=== PATIENT | male | born 1950 | race Caucasian/White ===

== ENCOUNTER 2018-12-31 00:45 | Observation (INO) | payer OTHER ==
[2018-12-31 01:17] VITALS: BMI 24.3
--- NOTE | 2018-12-31 01:36 | PDOC ---
History of Present Illness - General Chief Complaint: Pain, Acute Stated Complaint: LT SHOULDER PAIN Time Seen by Provider: 12/31/18 01:03 - History of Present Illness Initial Comments: 12/31/18 01:32 68 yr old man s/p PPM and CAD s/p stent placement in LAD, SLAP injury to the left shoulder presents with sudden left shoulder pain for the past hour that started while he was laying down reading a book. 7/10 in intensity, feels like a muscle ache, unable to localize with 1 finger, generally from the left latismus to the upper half of his bicep. It was continuous and intermittently radiating down to his forearm. denies alleviating or exacerbating factors. Took motrin without any relief. 2-3 days ago he had pain around his pacemaker that lasted about 2 hours and resolved without intervention. drove to [place] ([address]) last weekend which is not unusual for him. worked out on Sunday(usual reps and his usual standard workout with elliptical and strength straps) denies trauma, shortness of breath, LE edema, cough, fevers, joint swelling, weakness, heavy lifting, tremors, muscle spasm. denies strenous activities Sat/Sun, this morning he was mostly reading or on his computer PCP and information technology manager: Dr. Enio Wooten([facility]) had a PPM interrogation 1 month ago, was normal surghx: 11/26/2014 LAD stent, placed due to left arm pain during exercise 06/22/2008 Dupytryen's contracture, left pinkie 10/21/2007 [employer] Guidant pacemaker 2-leads, Physician: Dr. Juan Diego Metzger. pacemaker model 1291 serial [id number], lead 4136 serial #[id number], Lead 4137 serial#[id number]. 08/02/2001 SLAP of the left shoulder attributed to swimming 04/27/1994 right knee arthroscopy 12/13/1991 vasectomy 11/12/1963 appendectomy Pmhx: had a FAST cardiac CT few years ago that showed extensive calcifications, CAD. PPM was placed due to SVT episodes and severe bradycardia. 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 lives with . Past History - Travel Traveled outside of the country in the last 30 days: Yes If so, where?: [facility] Close contact w/someone who was outside of country & ill: No - Past Medical History Allergies/Adverse Reactions: Allergies Allergy/AdvReac Type Severity Reaction Status Date / Time No Known Allergies Allergy Verified 12/31/18 01:02 Home Medications: Ambulatory Orders Aspirin Coated [Ecotrin -] 81 mg PO DAILY 12/31/18 Atenolol [Tenormin -] 12.5 mg PO BID 12/31/18 Atorvastatin Ca [Lipitor] 40 mg PO HS 12/31/18 Clopidogrel Bisulfate [Plavix] 75 mg PO DAILY 12/31/18 Cardiac Disorders: Yes (STENT,PACEMAKER.) Hx Myocardial Infarction: No CVA: No COPD: No CHF: No DVT: No Diabetes: No HTN: No (f) - Surgical History Cardiac Surgery: Yes (STENT,PACEMAKER.) Orthopedic Surgery: Yes (left shoulder SLAP, right knee arthroscopy) - Suicide/Smoking/Psychosocial Hx Smoking History: Never smoked Substance Use Type: None Patient Lives Alone: No Lives with/in: spouse/SO Review of Systems - Review of Systems Constitutional: No: Diaphoresis, Fever, Malaise, Weakness, Unintentional Wgt. Loss Respiratory: No: Cough, Orthopnea, Shortness of Breath, SOB with Exertion, SOB at Rest, Productive cough Cardiac (ROS): No: Chest Pain, Edema, Irregular Heart Rate, Lightheadedness, Palpitations, Chest Tightness ABD/GI: No: Abdominal Distended, Blood Streaked Bowels, Difficulty Swallowing, Nausea, Poor Appetite, Vomiting, Abdominal cramping : No: Burning, Dysuria, Flank Pain, Hematuria Musculoskeletal: Yes: Joint Pain. No: Back Pain, Joint Swelling, Muscle Pain, Muscle Weakness, Joint Stiffness Integumentary: No: Bruising, Erythema, Pruritus, Rash Neurological: No: Headache, Numbness, Paresthesia, Tingling, Tremors, Weakness, Unsteady Gait, Dizziness Endocrine: No: Excessive Sweating, Intolerance to Cold, Intolerance to Heat Hematologic/Lymphatic: No: Anemia, Easy Bleeding, Easy Bruising *Physical Exam - Vital Signs Last Vital Signs Temp Pulse Resp BP Pulse Ox 97.5 F L 50 L 18 107/82 100 12/31/18 00:58 12/31/18 00:58 12/31/18 00:58 12/31/18 00:58 12/31/18 00:58 - Physical Exam General Appearance: Yes: Appropriately Dressed HEENT: positive: EOMI, MARYAM, Pharynx Normal, Hearing Grossly Normal. negative: Tonsillar Exudate, Tonsillar Erythema, Rhinorrhea, Sinus Tenderness Neck: positive: Trachea midline, Normal Thyroid, Supple. negative: Carotid bruit, Decreased range of motion, Lymphadenopathy (R), Lymphadenopathy (L), Tender lateral, Thyromegaly Respiratory/Chest: positive: Lungs Clear, Normal Breath Sounds. negative: Chest Tender, Crackles, Rales, Rhonchi, Wheezing Cardiovascular: positive: Regular Rhythm, S1, S2, Other (atrially paced rhythm) . negative: Murmur Gastrointestinal/Abdominal: positive: Normal Bowel Sounds, Flat. negative: Tender, Guarding, Rebound, Tenderness, Hernia Musculoskeletal: positive: Normal Inspection, Other. negative: CVA Tenderness, CVA Tenderness (L), Muscle Spasm Extremity: positive: Normal Capillary Refill, Other (FROM in both shoulders/ elbows/hips/knee and ankles, FROM in neck on active motion.). negative: Pedal Edema, Swelling, Calf Tenderness, Erythema Integumentary: positive: Dry, Warm, Other (PPM in the left upper chest close to the shoulder joint, nontender to palpation, overlying skin is intact without erythema/swelling. ). negative: Jaundice, Cold, Moist, Petechiae, Rash, Swelling, Bruising Neurologic: positive: bonding machine tender II-XII NML intact, Fully Oriented, Alert, Other (5/5 strength b/l shoulder extension, flexion, internal and external rotation. nontender vertebral palpation, nontender b/l shoulder joints without erythema or swelling. sensation across shoulder, arm, forearm, hands is equal b/l) Deep Tendon Reflexes: Bicep (L): 2+, Bicep (R): 2+ Moderate Sedation - Procedure Monitoring Vital Signs: Procedure Monitoring Vital Signs Temperature 97.5 F L 12/31/18 00:58 Pulse Rate 50 L 12/31/18 00:58 Respiratory Rate 18 12/31/18 00:58 Blood Pressure 107/82 12/31/18 00:58 O2 Sat by Pulse Oximetry (%) 100 12/31/18 00:58 Heart Score/ECG Review - History History: Slightly suspicious - Electrocardiogram EKG: Normal - Age Age: >/= 65 - Risk Factors Risk Factors Heart Score: Yes Hx Hypercholesterolemia, Yes Positive family hx of cardiac disease Based on the list above the patient has:: 1-2 risk factors - ECG Intrepretation Rhythm: Regular Rhythm Comment:: 12/31/18 02:33 PPM - [place]: Normal ED Treatment Course - LABORATORY CBC & Chemistry Diagram: 12/31/18 01:47 12/31/18 01:47 Medical Decision Making - Medical Decision Making 12/31/18 02:34 68 yr old man with cardiac hx s/p PPM and LAD stend and family hx of cardiac disease presents with left shoulder pain. will need to check serial troponins to evaluate for [place], check d-dimer to r/o PE given long drive recently 12/31/18 02:49 d-dimer neg, EKG is atrially paced with prolonged AV-conduction, Qtc 408, vent rate 50bpm. may need the pacemaker to be interrogated chest xray 12/31/18 04:02 microblog sent to hospitalist, signout provided to the accepting team for tele- obs. *DC/Admit/Observation/Transfer Diagnosis at time of Disposition: Ruled out for myocardial infarction - Discharge Dispostion Decision to Admit order: Yes - Referrals Referrals: Enio Wooten Jr., MD [Primary Care Provider] - - Patient Instructions - Post Discharge Activity
--- NOTE | 2018-12-31 01:37 | PDOC ---
Attending Attestation - Resident Resident Name: Ervin Jack - ED Attending Attestation I have performed the following: I have examined & evaluated the patient, The case was reviewed & discussed with the resident, I agree w/resident's findings & plan - HPI HPI: 12/31/18 01:54 68-year-old male with intermittent left-sided chest pain, patient states that he 's had some discomfort near his pacemaker site. He has a significant cardiac history including stent placement as well. - Physicial Exam PE: 12/31/18 01:55 GENERAL: Awake, in no acute distress HEAD: No signs of trauma EYES: ENT: Moist mucosa NECK: Normal ROM, LUNGS:. Normal work of breathing. HEART: Regular rate and rhythm, ABDOMEN: Soft, nondistended CHEST WALL: Left superior lateral pacemaker noted with its lateral and abutting the anterior shoulder joint BACK: No midline tenderness. EXTREMITIES:. No erythema, NEUROLOGICAL: Alert, SKIN: Warm, Dry - Medical Decision Making 12/31/18 01:56 68-year-old male with intermittent chest pain possibly due to pacemaker site Patient is also post recent travel Plan for troponin and d-dimer as well as routine labs with chest x-ray/CTA as appropriate and admission for serial enzymes and observation due to significant cardiac history
[2018-12-31 01:58] LABS: HEMATOCRIT 41.4 % (35.4-49); HEMOGLOBIN 14.6 GM/dL (11.7-16.9); LYMPH % 22.7 % (8-40); MCH 30.7 pg (25.7-33.7); MCHC 35.2 g/dl (32.0-35.9); MEAN CELL VOLUME 87.1 fl (80-96); MEAN PLT VOLUME 9.4 fl (7.5-11.1); MONO % 8.8 % (3.8-10.2); NEUT % 63.5 % (42.8-82.8); PLATELET COUNT 175 K/MM3 (134-434); RBC 4.76 M/mm3 (4.00-5.60); RDW 13.9 % (11.9-15.9); WHITE BLOOD COUNT 8.2 K/mm3 (4.0-10.0)
[2018-12-31 02:35] LABS: ALBUMIN 3.8 g/dl (3.4-5.0); ALK PHOS 67 U/L (45-117); ANION GAP 6 MMOL/L (8-16); BILIRUBIN,TOTAL 0.3 mg/dL (0.2-1); BLOOD UREA NITROGEN 26 mg/dL (7-18); CALCIUM 8.4 mg/dL (8.5-10.1); CHLORIDE 105 mmol/L (98-107); CO2 28 mmol/L (21-32); CREATININE 1.1 mg/dL (0.55-1.3); GLUCOSE,RANDOM 83 mg/dL (74-106); POTASSIUM 3.9 mmol/L (3.5-5.1); SGOT/AST 27 U/L (15-37); SGPT/ALT 35 U/L (13-61); SODIUM 139 mmol/L (136-145); TOT PROT 6.7 g/dl (6.4-8.2)
--- NOTE | 2018-12-31 03:18 | PN ---
Teaching Attending Note Name of Resident: Stefanie Norwood ATTENDING PHYSICIAN STATEMENT I saw and evaluated the patient. I reviewed the resident's note and discussed the case with the resident. I agree with the resident's findings and plan as documented. SUBJECTIVE: Patient is a 68 year old man with PMH of PPM placement (for SVT and severe bradycardia), CAD s/p stent placement in LAD and SLAP injury to the left shoulder who presents with sudden left shoulder pain for the past hour that started while he was laying down reading a book. Pain is 7/10 in intensity, feels like a muscle ache, unable to localize it with one finger and is generally from the left latissimus to the upper half of his bicep. It was continuous and intermittently radiating down to his forearm. No alleviating or exacerbating factors. Took motrin without any relief. Says that 2-3 days ago he had pain around his pacemaker that lasted about 2 hours and resolved without intervention. Drove to [place] ([address]) last weekend which is not unusual for him. Worked out on Sunday(usual reps and his usual standard workout). Denies trauma, shortness of breath, LE edema, cough, fevers, joint swelling, weakness, heavy lifting, tremors, muscle spasm. Had a PPM interrogation 1 month ago, was normal OBJECTIVE: Alert Vital Signs Period Temp Pulse Resp BP Sys/Cook Pulse Ox Last 24 Hr 97.5 F 50 18 107/82 100 HEENT: No Jaundice, eye redness or discharge, PERRLA, EOMI. Normocephalic, atraumatic. External ears are normal and hearing is grossly intact. No nasal discharge. Neck: Supple, nontender. No palpable adenopathy or thyromegaly. No JVD Chest: Good effort. Clear to auscultation and percussion. Heart: Bradycardia. Regular. No S3, rub or murmur Abdomen: Not distended, soft, nontender and no HSM. No rebound or guarding. Normoactive bowel sounds. Ext: Peripheral pulses intact. No leg edema. Skin: Warm and dry. No petechiae, rash or ecchymosis. Neuro: Alert. Oriented x3. CN 2-12 grossly intact. Sensation grossly intact in all four extremities and DTR are symmetric. Home Medications Medication Instructions Recorded Aspirin Coated [Ecotrin -] 81 mg PO DAILY 12/31/18 Atenolol [Tenormin -] 12.5 mg PO BID 12/31/18 Atorvastatin Ca [Lipitor] 40 mg PO HS 12/31/18 Clopidogrel Bisulfate [Plavix] 75 mg PO DAILY 12/31/18 Abnormal Lab Results 12/31/18 01:47 Anion Gap 6 L BUN 26 H Calcium 8.4 L ASSESSMENT AND PLAN: 1. Chest pain - His presentation may be atypical for ACS, but he has risk factors. No acute pathology on CXR and EKG shows Atrial-paced rhythm, bradycardia but no significant ST-T wave changes. Patient is now painfree. Will admit to telemetry to rule out ACS, get ECHO, cardiolgy consult and continue lipitor. 2. DVT prophylaxis - Lovenox 40 mg SQ q 24 hours. 3. Advance directives - Full code
--- NOTE | 2018-12-31 04:19 | HP ---
CHIEF COMPLAINT: L shoulder pain PCP: Dr. Wooten ([facility]) HISTORY OF PRESENT ILLNESS: 68M w/ pmhx of CAD (s/p stent 2014), sick sinus syndrome (s/p PPM placement 2006 ) presented to the ED with complaints of L shoulder pain that started at about 1030pm last night. Pt reported the pain started on his L shoulder blade and radiated down his tricep to the elbow. He described the pain as dull and aching in quality and constant. He took Motrin, but with no symptomatic relief. At the time when these symptoms started, he states he was on the computer. He denies any recent trauma to the area. Of note, he did also report similar L arm pain a couple days prior while he was getting dressed, however it resolved on its own. The persistence of this L shoulder pain is what prompted him to be evaluated in the ED. He is an active person in which he lifts weights and does the elliptical at least twice a week. Pt reports previously having L shoulder pain back in 2014, prior to having his LAD stent placed, however, he says that this type of pain is different from what he experienced in the past. He denies any tingling, numbness, or weakness in his L upper extremity. Denies headaches/dizziness, fever/chills, chest pain/ pressure, nausea/vomiting, sob, abd pain, dysuria, hematuria, blood in stool, or other bowel symptoms. ER course was notable for: (1) EKG showed HR 50, QTc 408 ms, atrial paced rhythm (2) CXR ordered (3) Recent Travel: Recently did a road trip to [place] with his to visit his daughter (~6 hours back and forth, 12 hours total roundtrip) PAST MEDICAL HISTORY: As per HPI PAST SURGICAL HISTORY: 11/26/2014 LAD stent, placed due to left arm pain during exercise 06/22/2008 Dupytryen's contracture, left pinkie 10/21/2007 [employer] Guidant pacemaker 2-leads, Physician: Dr. Juan Diego Metzger. 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 Family History: Father- of [place] (LAD lesion) at age 68, also had Glioblastoma Allergies No Known Allergies Allergy (Verified 12/31/18 01:02) HOME MEDICATIONS: Home Medications Medication Instructions Recorded Aspirin Coated [Ecotrin -] 81 mg PO DAILY 12/31/18 Atenolol [Tenormin -] 12.5 mg PO BID 12/31/18 Atorvastatin Ca [Lipitor] 40 mg PO HS 12/31/18 Clopidogrel Bisulfate [Plavix] 75 mg PO DAILY 12/31/18 REVIEW OF SYSTEMS CONSTITUTIONAL: Denies fever, chills, diaphoresis, generalized weakness, malaise , loss of appetite HEENT: Denies rhinorrhea, nasal congestion, throat pain, eye pain, visual changes CARDIOVASCULAR: Denies chest pain, syncope, palpitations, irregular heart rate, lightheadedness, peripheral edema RESPIRATORY: Denies cough, shortness of breath, dyspnea with exertion, orthopnea GASTROINTESTINAL: Denies abdominal pain, abdominal distension, nausea, vomiting , diarrhea, constipation GENITOURINARY: Denies dysuria, frequency, urgency, hesitancy, hematuria, flank pain, genital pain MUSCULOSKELETAL: Admits to L shoulder pain radiating to L tricep; Denies neck pain NEUROLOGIC: Denies headache, focal weakness or paresthesias, dizziness, unsteady gait PHYSICAL EXAMINATION Vital Signs - 24 hr 12/31/18 00:58 Temperature 97.5 F L Pulse Rate 50 L Respiratory 18 Rate Blood Pressure 107/82 O2 Sat by Pulse 100 Oximetry (%) GENERAL: AAOx3. NAD. Resting comfortably in bed. Pleasant, well-appearing male. HEENT: AT/NC. EOMI. MARYAM. Moist mucus membranes. NECK: Normal range of motion, supple without lymphadenopathy, JVD, or masses. LUNGS: CTA B/L. No wheezes/crackled noted. CHEST: Symmetric chest rise. Pacemaker place L upper chest near shoulder joint, no erythema or ecchymoses noted in area. No tenderness to palpation. HEART: RRR. Normal S1, S2. No murmurs noted. ABDOMEN: Soft NT/ND. +BS in all 4Q's. No masses noted. MUSCULOSKELETAL: Normal range of motion at all joints. No bony deformities or tenderness. No CVA tenderness. UPPER EXTREMITIES: 2+ pulses, warm, well-perfused. No cyanosis. No clubbing. No peripheral edema. 5/5 muscle strength in b/l shoulder and elbow flexion/ extension LOWER EXTREMITIES: 2+ pulses, warm, well-perfused. No calf tenderness. No peripheral edema. 5/5 muscle strength in b/l hip and knee flexion/extension. NEUROLOGICAL: Facial muscles intact. Responds to commands. PSYCHIATRIC: Cooperative. Good eye contact. Appropriate mood and affect. SKIN: Warm, dry, normal turgor, no rashes or lesions noted, normal capillary refill. Laboratory Results - last 24 hr 12/31/18 12/31/18 12/31/18 01:47 01:47 01:47 WBC 8.2 RBC 4.76 Hgb 14.6 Hct 41.4 MCV 87.1 MCH 30.7 MCHC 35.2 RDW 13.9 Plt Count 175 MPV 9.4 Absolute Neuts (auto) 5.2 Neutrophils % 63.5 Lymphocytes % 22.7 Monocytes % 8.8 Eosinophils % 4.0 Basophils % 1.0 Nucleated RBC % 0 D-Dimer < 215 Sodium 139 Potassium 3.9 Chloride 105 Carbon Dioxide 28 Anion Gap 6 L BUN 26 H Creatinine 1.1 Creat Clearance w eGFR > 60 Random Glucose 83 Calcium 8.4 L Total Bilirubin 0.3 AST 27 ALT 35 Alkaline Phosphatase 67 Creatine Kinase 117 Troponin I < 0.02 Total Protein 6.7 Albumin 3.8 CONSULTS: Cardio- Dr. Pereira IMAGING: * CXR: pending * EKG: atrially paced with prolonged AV-conduction, Qtc 408, vent rate 50 bpm ASSESSMENT/PLAN: 68M w/ pmhx of CAD (s/p stent 2006), sick sinus syndrome (s/p PPM placement 2006 ) presented to the ED with complaints of L shoulder pain. #L shoulder pain; r/o ACS vs. musculoskeletal etiology -Pt currently asymptomatic upon encounter. -EKG noted above; unremarkable for ACS. Trops neg x1, will repeat at 8am -Pt has PPM (placed 2006 due to sick sinus syndrome); await cardio recs if PPM needs to be interrogated again (last interrogation done ~6 weeks ago). Will likely need outpatient follow up. -Cardio consult ordered; await recs -Echo ordered #CAD; s/p LAD stent (2014) Cont home meds: Atorvastatin 40 HS, ASA 81, Plavix 75 QD, Atenolol 12.5 BID #Prophylaxis -Lovenox 40 SQ QD #FEN -PO hydration -recheck lytes in AM -regular diet dispo -admit to tele obs -medications have been reconciled Visit type - Emergency Visit Emergency Visit: Yes ED Registration Date: 12/31/18 Care time: The patient presented to the Emergency Department on the above date and was hospitalized for further evaluation of their emergent condition. - New Patient This patient is new to me today: Yes Date on this admission: 12/31/18 - Critical Care Critical Care patient: No
[2018-12-31 08:25] LABS: EOS % 4.3 % (0-4.5); HEMATOCRIT 42.3 % (35.4-49); HEMOGLOBIN 14.8 GM/dL (11.7-16.9); LYMPH % 22.3 % (8-40); MCH 30.7 pg (25.7-33.7); MEAN CELL VOLUME 87.6 fl (80-96); MEAN PLT VOLUME 9.5 fl (7.5-11.1); MONO % 7.9 % (3.8-10.2); NEUT % 64.5 % (42.8-82.8); PLATELET COUNT 165 K/MM3 (134-434); RBC 4.83 M/mm3 (4.00-5.60); RDW 13.8 % (11.9-15.9); WHITE BLOOD COUNT 6.1 K/mm3 (4.0-10.0)
[2018-12-31 09:14] LABS: ALBUMIN 3.8 g/dl (3.4-5.0); ALK PHOS 70 U/L (45-117); ANION GAP 6 MMOL/L (8-16); BILIRUBIN,TOTAL 0.5 mg/dL (0.2-1); BLOOD UREA NITROGEN 23 mg/dL (7-18); CALCIUM 8.6 mg/dL (8.5-10.1); CHLORIDE 106 mmol/L (98-107); CO2 29 mmol/L (21-32); GLUCOSE,RANDOM 84 mg/dL (74-106); MAGNESIUM 2.4 mg/dL (1.8-2.4); PHOSPHOROUS 3.6 mg/dL (2.5-4.9); POTASSIUM 4.1 mmol/L (3.5-5.1); SGOT/AST 21 U/L (15-37); SGPT/ALT 35 U/L (13-61); SODIUM 141 mmol/L (136-145); TOT PROT 6.7 g/dl (6.4-8.2)
[2018-12-31] MEDS ORDERED: ASPIRIN COATED 81 MG TABLET.EC PO SCH (10:00)
[2018-12-31] MEDS ORDERED: CLOPIDOGREL BISULFATE 75 MG TABLET (FP) PO SCH (10:00)
[2018-12-31] MEDS ORDERED: ATENOLOL 25 MG TABLET (FP) PO SCH (10:00)
[2018-12-31] MEDS ORDERED: ENOXAPARIN NA (PORCINE) 40 MG/0.4 ML DISP.SYRIN SQ SCH (10:00)
--- NOTE | 2018-12-31 10:35 | CON.CARD ---
Consult Consult Specialty:: cardiology Reason for Consultation:: left hsoulder pain; hx CAD/PCI - History of Present Illness Chief Complaint: Pt A&OX3; no chest pain or dyspnea; left shoulder pain went away completely three hours after it started last night (and afteer one ibuprofen tablet). History of Present Illness: 68 yr old white man s/p PPM and CAD s/p stent placement in mid LAD 02/2016 (no hx [place]), s/p eft shoulder rotator cuff surgical repair, anxeity, presents with sudden left shoulder pain for the past hour that started while he was laying down reading a book. 05/21 in intensity, feels like a muscle ache, unable to localize with 1 finger, generally from the left latismus to the upper half of his bicep. It was continuous and intermittently radiating down to his forearm. denies alleviating or exacerbating factors. Took motrin without any relief. 2-3 days ago he had pain around his pacemaker that lasted about 2 hours and resolved without intervention. drove to [place] ([address]) last weekend which is not unusual for him. worked out on Sunday(usual reps and his usual standard workout with elliptical and strength straps) denies trauma, shortness of breath, LE edema, cough, fevers, joint swelling, weakness, heavy lifting, tremors, muscle spasm. 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 Enio Wooten([facility]) had a PPM interrogation 1 month ago, was normal Per pt's department of natural resources officer, pt had strongly + stress MIBI 12/2015 that resulted in coronary angiogram. One vessel disease was seen, and pt underwent a mid-LAD stent. - History Source History Provided By: Patient, Family Member, Medical Record Limitations to Obtaining History: No Limitations - Past Medical History MUSIC ENGRAVER: Yes: Other (anxiety) Cardio/Vascular: Yes: CAD, HTN Psych: Yes: Anxiety Musculoskeletal: Yes: Other (left shoulder rotator cuff tear-->surgery) - Past Surgical History Past Surgical History: Yes: Permanent Pacemaker, Stent (LAD) Additional Surgical History: left rotator cuff repair - Alcohol/Substance Use Hx Alcohol Use: Yes Number of Drinks Daily: 1 - Smoking History Smoking history: Never smoked - Social History Usual Living Arrangement: With Spouse History of Recent Travel: Yes ([place]) Home Medications - Allergies Allergies/Adverse Reactions: Allergies Allergy/AdvReac Type Severity Reaction Status Date / Time No Known Allergies Allergy Verified 12/31/18 01:02 - Home Medications Home Medications: Ambulatory Orders Aspirin Coated [Ecotrin -] 81 mg PO DAILY 12/31/18 Atenolol [Tenormin -] 12.5 mg PO BID 12/31/18 Atorvastatin Ca [Lipitor] 40 mg PO HS 12/31/18 Clopidogrel Bisulfate [Plavix] 75 mg PO DAILY 12/31/18 Nitroglycerin Sublingual [Nitrostat -] 0.4 mg SL ONCE PRN #10 tab 12/31/18 Family Disease History - Family Disease History Family Disease History: Heart Disease: Father - Risk Factors Known Risk Factors: Yes: Age, Gender, Hypercholesterolemia, Hypertension, Other (CAD-->PCI) Vital Signs: Vital Signs Temperature 97.8 F 12/31/18 07:25 Pulse Rate 51 L 12/31/18 07:25 Respiratory Rate 18 12/31/18 07:25 Blood Pressure 115/71 12/31/18 07:25 O2 Sat by Pulse Oximetry (%) 100 12/31/18 07:25 Constitutional: Yes: Well Nourished, Anxious Eyes: Yes: WNL HENT: Yes: WNL Neck: Yes: WNL Respiratory: Yes: WNL Gastrointestinal: Yes: WNL Renal/: No: Anuria Cardiovascular: Yes: WNL JVD: No Carotid Bruit: No PMI: Non-Displaced Heart Sounds: Yes: S1, S2 Musculoskeletal: Yes: WNL Extremities: Yes: WNL Edema: No Peripheral Pulses WNL: Yes Integumentary: Yes: WNL Neurological: Yes: WNL Psychiatric: Yes: WNL - Other Data Labs, Other Data: CBC, BMP 12/31/18 08:10 12/31/18 08:10 Troponin, BNP 12/31/18 12/31/18 01:47 08:10 Troponin I < 0.02 < 0.02 Troponin, BNP 12/31/18 12/31/18 01:47 08:10 Troponin I < 0.02 < 0.02 Abnormal Lab Results 12/31/18 12/31/18 01:47 08:10 Anion Gap 6 L 6 L BUN 26 H 23 H Calcium 8.4 L
--- NOTE | 2018-12-31 11:52 | EKG ---
Test Reason : Blood Pressure : / mmHG Vent. Rate : 050 BPM Atrial Rate : 050 BPM P-R Int : 000 ms QRS Dur : 102 ms QT Int : 448 ms P-R-T Axes : -06 -13 017 degrees QTc Int : 408 ms Atrial-paced rhythm with prolonged AV conduction ABNORMAL ECG NO PREVIOUS ECGS AVAILABLE Confirmed by MD KAUSHIK, SIMON ([id number]) on 12/31/2018 11:52:35 AM Referred By: Confirmed By:SIMON FAULKNER MD
--- NOTE | 2018-12-31 13:19 | PN ---
Physical Exam: SUBJECTIVE: Patient seen and examined at bedside in the ED. At time of encounter all acute symptoms have resolved, denies ongoing LUE pain, CP, any other pain, or any other complaints. OBJECTIVE: Vital Signs Period Temp Pulse Resp BP Sys/Cook Pulse Ox Last 24 Hr 97.4 F-97.8 F 50-57 16-20 107-120/71-82 100-100 GENERAL: A&Ox3, NAD HEENT: NC/AT, PERRLA, EOMI, MMM NECK: Trachea midline, full range of motion, supple. LUNGS: CTA b/l HEART: Paced rhythm no m/r/g ABDOMEN: +bs, soft, NT, ND EXTREMITIES: 2+ pulses, warm, well-perfused, no edema. 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 SKIN: Warm, dry, normal turgor, no rashes or lesions noted Laboratory Results - last 24 hr 12/31/18 12/31/18 12/31/18 01:47 01:47 01:47 WBC 8.2 RBC 4.76 Hgb 14.6 Hct 41.4 MCV 87.1 MCH 30.7 MCHC 35.2 RDW 13.9 Plt Count 175 MPV 9.4 Absolute Neuts (auto) 5.2 Neutrophils % 63.5 Lymphocytes % 22.7 Monocytes % 8.8 Eosinophils % 4.0 Basophils % 1.0 Nucleated RBC % 0 D-Dimer < 215 Sodium 139 Potassium 3.9 Chloride 105 Carbon Dioxide 28 Anion Gap 6 L BUN 26 H Creatinine 1.1 Creat Clearance w eGFR > 60 Random Glucose 83 Calcium 8.4 L Phosphorus Magnesium Total Bilirubin 0.3 AST 27 ALT 35 Alkaline Phosphatase 67 Creatine Kinase 117 Troponin I < 0.02 Total Protein 6.7 Albumin 3.8 12/31/18 12/31/18 08:10 08:10 WBC 6.1 RBC 4.83 Hgb 14.8 Hct 42.3 MCV 87.6 MCH 30.7 MCHC 35.0 RDW 13.8 Plt Count 165 MPV 9.5 Absolute Neuts (auto) 3.9 Neutrophils % 64.5 Lymphocytes % 22.3 Monocytes % 7.9 Eosinophils % 4.3 Basophils % 1.0 Nucleated RBC % 0 D-Dimer Sodium 141 Potassium 4.1 Chloride 106 Carbon Dioxide 29 Anion Gap 6 L BUN 23 H Creatinine 1.0 Creat Clearance w eGFR > 60 Random Glucose 84 Calcium 8.6 Phosphorus 3.6 Magnesium 2.4 Total Bilirubin 0.5 AST 21 ALT 35 Alkaline Phosphatase 70 Creatine Kinase Troponin I < 0.02 Total Protein 6.7 Albumin 3.8 Active Medications Generic Name Dose Route Start Last Admin Trade Name Freq PRN Reason Stop Dose Admin Aspirin 81 mg 12/31/18 10:00 Ecotrin - PO DAILY HELADIO Atenolol 12.5 mg 12/31/18 10:00 Tenormin - PO BID HELADIO Atorvastatin Calcium 40 mg 12/31/18 22:00 Lipitor - PO HS HELADIO Clopidogrel Bisulfate 75 mg 12/31/18 10:00 Plavix - PO DAILY HELADIO Enoxaparin Sodium 40 mg 12/31/18 10:00 Lovenox - SQ DAILY HELADIO ASSESSMENT/PLAN: 68 y/o M w/ PMHx CAD s/p LAD stent in 2015, sick sinus syndrome s/p PPM in 2006 , presented to ED w/ complaint of L shoulder pain radiating distally w/o chest pain or radiation to neck, admitted for tele obs given cardiac history. #r/o ACS -negative serial troponins, reassuring EKG -echo performed, unremarkable apart from mild MR and TR -cardiology consulted, Dr. Rodríguez following, d/w Pt's regular outpatient facility physical therapist Dr. Wooten -recommendation for inpatient stress test (Pt has not had one since initial stent placement -resume home meds #FEN -no IVF -monitor and correct lytes -regular diet #PPx -DVT: Lovenox subq -GI: not indicated #code -full #dispo -tele obs at this time, can be d/c if stress testing is reassuring
--- NOTE | 2018-12-31 13:24 | ECHO ---
Name: FRANDY CHILDS Exam:Adult Echocardiogram Study Date: 12/31/2018 07:43 AM Age: 68 yrs Reason For Study: R/O ACS Height: 68 in Weight: 160 lb BSA: 1.9 m2 MMode/2D Measurements & Calculations IVSd: 0.76 cm Ao root diam: 2.9 cm LVIDd: 4.7 cm LA dimension: 3.4 cm LVIDs: 2.5 cm LVPWd: 0.87 cm EDV(Teich): 103.5 ml LAV (MOD-bp): 41.7 ml ESV(Teich): 22.9 ml Doppler Measurements & Calculations MV E max khai: 77.6 cm/sec MV A max khai: 78.6 cm/sec MV dec slope: 381.9 cm/sec2 MV E/A: 0.99 AI P1/2t: 2491 msec AI max khai: 321.7 cm/sec AI max P.4 mmHg AI dec slope: 37.8 cm/sec2 TR max khai: 249.1 cm/sec Med Peak E' Khai: 7.1 cm/sec TR max P.8 mmHg Med E/e': 11.0 Lat Peak E' Khai: 10.1 cm/sec Lat E/e': 7.7 PI Vmax: 99.1 cm/sec Procedure A two-dimensional transthoracic echocardiogram with color flow and Doppler was performed. Left Ventricle The left ventricular size, thickness and function are normal. Ejection Fraction = 60%. The transmitra l spectral Doppler flow pattern is suggestive of impaired LV relaxation. Right Ventricle The right ventricle is normal in size and function. There is a pacemaker lead in the right ventricle. Atria Normal left and right atrial size and function. Mitral Valve The mitral valve is grossly normal. There is mild mitral regurgitation. Tricuspid Valve The tricuspid valve is not well visualized, but is grossly normal. There is mild tricuspid regurgitat ion. Right ventricular systolic pressure is normal. Aortic Valve The aortic valve is normal in structure and function. There is mild aortic sclerosis.;. No hemodynami christiano significant valvular aortic stenosis. Mild aortic regurgitation. Pulmonic Valve The pulmonic valve is not well visualized. Great Vessels The aortic root is normal size. Pericardium/Pleura There is no pericardial effusion. Interpretation Summary The left ventricular size, thickness and function are normal Normal left and right atrial size and function. There is mild mitral regurgitation. There is mild tricuspid regurgitation. No hemodynamically significant valvular aortic stenosis. Mild aortic regurgitation. There is no pericardial effusion. Right ventricular systolic pressure is normal. MD Parag Lord 12/31/2018 01:23 PM
[2018-12-31 13:39] VITALS: PULSE 57
--- NOTE | 2018-12-31 14:13 | PN ---
Teaching Attending Note Name of Resident: Chang Fish ATTENDING PHYSICIAN STATEMENT I saw and evaluated the patient. I reviewed the resident's note and discussed the case with the resident. I agree with the resident's findings and plan as documented. SUBJECTIVE:asymptomatic. states he developed posterior L shoulder pain yesterday while at rest. has since resolved. no radiatiion no other symptoms. exercises by running 3x/week. never develops any symptoms during this time. had last stress test in 2015. states he had PPM interrogated last month. follow with cardio closely. OBJECTIVE: Last Vital Signs Temp Pulse Resp BP Pulse Ox 97.8 F 57 L 16 100/70 100 12/31/18 13:38 12/31/18 13:38 12/31/18 13:38 12/31/18 13:38 12/31/18 13:38 General NAD CV S1 S2 RRR no murmur/rub/gallop no chest wall tenderness Lungs CTA B/L no wheezing/rales/rhonchi Extremities no point tenderness along the bones or muscles. full ROM of the LUE ASSESSMENT AND PLAN: 68yo M with PMH SSS s/p PPM and CAD s/p stent presented to the ER with L shoulder pain 1. R/o ACS- low suspicion for ACS. troponin neg x1. awaiting 2nd set. echo pending. 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 plan to d/c home pending result of stress test 2. case d/w present at bedside. all questions answered. verbalized understanding and agreement with plan
[2018-12-31 15:11] VITALS: BP 98/68; TEMP 97.9
--- NOTE | 2018-12-31 16:36 | DS ---
Physical Exam: SUBJECTIVE: Patient seen and examined at bedside in the ED. At time of encounter all acute symptoms have resolved, denies ongoing LUE pain, CP, any other pain, or any other complaints. OBJECTIVE: Vital Signs Period Temp Pulse Resp BP Sys/Cook Pulse Ox Last 24 Hr 97.4 F-97.9 F 50-57 16-20 98-120/68-82 100-100 PHYSICAL EXAM GENERAL: A&Ox3, NAD HEENT: NC/AT, PERRLA, EOMI, MMM NECK: Trachea midline, full range of motion, supple. LUNGS: CTA b/l HEART: Paced rhythm no m/r/g ABDOMEN: +bs, soft, NT, ND EXTREMITIES: 2+ pulses, warm, well-perfused, no edema. 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 SKIN: Warm, dry, normal turgor, no rashes or lesions noted LABS Laboratory Results - last 24 hr 12/31/18 12/31/18 12/31/18 01:47 01:47 01:47 WBC 8.2 RBC 4.76 Hgb 14.6 Hct 41.4 MCV 87.1 MCH 30.7 MCHC 35.2 RDW 13.9 Plt Count 175 MPV 9.4 Absolute Neuts (auto) 5.2 Neutrophils % 63.5 Lymphocytes % 22.7 Monocytes % 8.8 Eosinophils % 4.0 Basophils % 1.0 Nucleated RBC % 0 D-Dimer < 215 Sodium 139 Potassium 3.9 Chloride 105 Carbon Dioxide 28 Anion Gap 6 L BUN 26 H Creatinine 1.1 Creat Clearance w eGFR > 60 Random Glucose 83 Calcium 8.4 L Phosphorus Magnesium Total Bilirubin 0.3 AST 27 ALT 35 Alkaline Phosphatase 67 Creatine Kinase 117 Troponin I < 0.02 Total Protein 6.7 Albumin 3.8 12/31/18 12/31/18 08:10 08:10 WBC 6.1 RBC 4.83 Hgb 14.8 Hct 42.3 MCV 87.6 MCH 30.7 MCHC 35.0 RDW 13.8 Plt Count 165 MPV 9.5 Absolute Neuts (auto) 3.9 Neutrophils % 64.5 Lymphocytes % 22.3 Monocytes % 7.9 Eosinophils % 4.3 Basophils % 1.0 Nucleated RBC % 0 D-Dimer Sodium 141 Potassium 4.1 Chloride 106 Carbon Dioxide 29 Anion Gap 6 L BUN 23 H Creatinine 1.0 Creat Clearance w eGFR > 60 Random Glucose 84 Calcium 8.6 Phosphorus 3.6 Magnesium 2.4 Total Bilirubin 0.5 AST 21 ALT 35 Alkaline Phosphatase 70 Creatine Kinase Troponin I < 0.02 Total Protein 6.7 Albumin 3.8 HOSPITAL COURSE: Date of Admission:12/31/18 Patient is 68 y/o M w/ PMHx CAD s/p LAD stent in 2015, sick sinus syndrome s/p PPM in 2006, who presented to the ED w/ complaint of L shoulder pain radiating distally w/o chest pain or radiation to neck, admitted for tele obs given cardiac history. Cardiology was consulted and the patient was seen by Dr. Rodríguez. Serial troponins were negative, EKG was reassuring, echocardiogram was wnl. However, exercise stress testing revealed 1mm reversible defect in leads II, III, and aVF. Cardiology cleared the patient for discharge with close followup with his outpatient audiovisual production specialist and recommendation for cardiac rehabilitation. Results of all tests will be conveyed to the patient's audiovisual production specialist, Dr. Wooten. He was given instructions to resume home medications and prescribed PRN sublingual nitroglycerin for recurrent anginal pain. Date of Discharge: 12/31/18 Minutes to complete discharge: 40 Discharge Summary Reason For Visit: RULED OUT FOR MYOCARDIAL INFARCTION Current Active Problems Ruled out for myocardial infarction (Acute) Condition: Stable - Instructions Diet, Activity, Other Instructions: You were evaluated for left arm pain, which is concerning in light of your cardiac history. The in-house audiovisual production specialist, Dr. Rodríguez, met with you, evaluated your case, and discussed it with your regular audiovisual production specialist, Dr. Wooten, who agreed with the workup we performed. Your EKG and cardiac enzymes were normal. You underwent an echocardiogram which was reassuring. You had a stress test performed which found a small, reversible defect in cardiac blood flow. It is safe for you to be discharged home but you will require close follow up. Please follow up with Dr. Wooten at your earliest opportunity. You may take sublingual nitroglycerin to relieve pain in the meantime, and this will be prescribed to your pharmacy. You are also eligible for a three month program of cardiac rehabilitation which you can discuss with Dr. Wooten. Otherwise please resume your home medications. If you experience any new or worsening chest pain, shortness of breath, pain with breathing, focal weakness or change in sensation, or any other new or concerning symptoms, please return to the Emergency Department. Medications: You will be given 0.4mg Nitroglycerin to use ONLY if you have active chest or arm pain. You may use it every 5 minutes for MAX DOSE of 3 times. If you experience chest pain for a long duration despite nitroglycerin and/or rest you should return to the ED. Referrals: Enio Wooten Jr., MD [Primary Care Provider] - Disposition: HOME - Home Medications Comprehensive Discharge Medication List: Ambulatory Orders Aspirin Coated [Ecotrin -] 81 mg PO DAILY 12/31/18 Atenolol [Tenormin -] 12.5 mg PO BID 12/31/18 Atorvastatin Ca [Lipitor] 40 mg PO HS 12/31/18 Clopidogrel Bisulfate [Plavix] 75 mg PO DAILY 12/31/18 Nitroglycerin Sublingual [Nitrostat -] 0.4 mg SL ONCE PRN #10 tab 12/31/18 This patient is new to me today: Yes Date on this admission: 12/31/18 Emergency Visit: Yes ED Registration Date: 12/31/18 Care time: The patient presented to the Emergency Department on the above date and was hospitalized for further evaluation of their emergent condition. Critical Care patient: No - Discharge Referral Referred to [facility] No
[2018-12-31 17:12] LABS: CHOLESTEROL 140 mg/dL (50-200); HDL CHOLESTEROL 65 mg/dL (40-60); TRIGLYCERIDES 74 mg/dL (0-150)
[2018-12-31] MEDS ORDERED: ATORVASTATIN CA 40 MG TABLET (FP) PO SCH (22:00)
== END 2018-12-31 17:34 | disposition home or self-care (01) ==
LOC: JER 00:45 → JERBED 03:00
PROVIDERS: ADMIT Internal Medicine; ATTEND Internal Medicine
PROC: 3E013GC Introduction of Other Therapeutic Substance into Subcutaneous Tissue, Percutaneous Approach (ICD-10-PCS; principal; 2018-12-31)
DX: R07.9 Chest pain, unspecified (principal); M25.512 Pain in left shoulder; I25.10 Atherosclerotic heart disease of native coronary artery without angina pectoris; Z95.0 Presence of cardiac pacemaker; Z95.5 Presence of coronary angioplasty implant and graft; Z79.82 Long term (current) use of aspirin
CPT/HCPCS: 36415; 71045-TC-FY; 78452-TC; 80053; 80061; 82550; 83721; 83735; 84100; 84484; 85025; 85379; 93005; 93010; 93017; 93306-TC; 96372; 99285-25; A9502; G0378

== ENCOUNTER 2023-10-30 11:22 | Emergency (ER) | payer OTHER ==
[2023-10-30 11:35] VITALS: BP 130/68; PULSE 66; RESP 16; TEMP 97.7; BMI 23.6
[2023-10-30] MEDS ORDERED: ACETAMINOPHEN 500 MG TABLET (FP) PO ONE (13:07)
[2023-10-30] MEDS ORDERED: ACETAMINOPHEN 500 MG TABLET (FP) ONE (13:12)
== END 2023-10-30 16:33 | disposition home or self-care (01) ==
LOC: JER 11:22
DX: S00.01XA Abrasion of scalp, initial encounter (principal); W01.198A Fall on same level from slipping, tripping and stumbling with subsequent striking against other object, initial encounter; Y92.9 Unspecified place or not applicable
CPT/HCPCS: 70450-TC; 72125-TC; 73060-TC-LT-FY; 99284-25